=== PATIENT | female | born 1975 | race African-American/Black ===

== ENCOUNTER 2016-12-22 15:09 | Inpatient (IN) | payer MEDICARE, MEDICAID ==
[2016-12-22 15:51] LABS: #Lymphocytes 1.3 thou/uL (1.20-3.40); #Monocytes 1.1 thou/uL (0.11-0.59); #Neutrophils 15.1 thou/uL (1.40-6.50); %Eosinophils 0.1 % (0.0-10.0); %Lymphocytes 7.5 % (21.0-51.0); Hematocrit 27.4 % (36.0-47.0); Red Blood Cell (RBC) Count 2.89 mill/uL (4.20-5.40); White Blood Cell (WBC) Count 17.5 thou/uL (4.8-10.8)
--- NOTE | 2016-12-22 16:05 | RAD ---
LEFT FOOT 3 VIEWS: INDICATION: Sepsis. FINDINGS: No acute fracture or dislocation. There is vascular calcification. No radiopaque foreign bodies ar e seen. IMPRESSION: No acute osseous abnormality of the left foot. POS: [facility]
--- NOTE | 2016-12-22 16:07 | RAD ---
2 VIEWS OF CHEST: Date: 12/22/16 COMPARISON: 03/27/12. HISTORY: Sepsis, dialysis patient. FINDINGS: There is extensive vascular stent material in the left axillary and subclavian region. Midline dai otomy wires are present. There is no pneumothorax, pleural fluid, focal consolidation, or alveolar e lopez. There are upper abdominal postsurgical clips. IMPRESSION: Postoperative changes as detailed above. No focal consolidation or alveolar edema. POS: [facility]
[2016-12-22 16:11] LABS: ALT (SGPT) Less than 7 U/L (8-55); AST (SGOT) 6 U/L (5-34); Alkaline Phosphatase 122 U/L (40-150); Anion Gap 14 mmol/L (10-20); BUN (Urea Nitrogen) 29 mg/dL (7.0-18.7); Bilirubin, Total 0.6 mg/dL (0.2-1.2); Calc. Creatinine Clearance 0 mL/min (70-130); Calcium 9.2 mg/dL (7.8-10.44); Carbon Dioxide 23 mmol/L (22-29); Chloride 99 mmol/L (98-107); Estimated GFR-MDRD 7; Globulin 5.6 g/dL (2.4-3.5); Protein, Total 8.5 g/dL (6.0-8.3)
[2016-12-22 16:25] LABS: Troponin I 0.301 ng/mL (< 0.028)
[2016-12-22] MEDS ORDERED: Acetaminophen 500 MG TAB ONE (16:26)
[2016-12-22] MEDS ORDERED: Ondansetron HCl/PF 4 MG/2 ML Vial ONE (16:34)
--- OUTSIDE RECORDS SUMMARY | 2016-12-22 16:56 | XMS | Clinical Summary ---
:1975 Author Organization [facility] Address [address] [place] [address] Phone Care Team Providers Name Role Phone , Primary Care Provider Unavailable Allergies Active Allergy Reactions Severity Noted Date Comments Iodine And Iodide Containing Hives,Nausea And Vomiting 09/10/2016 Products Current Medications Prescription Sig. Disp. Refills Start Date End Date Status amLODIPine (NORVASC) Take 10 mg by mouth Active 10 MG tablet daily. calcium carbonate Take 1 tablet by mouth Active (TUMS) 500 mg daily. chewable tablet cholecalciferol, Take 5,000 Units by Active vitamin D3, 5,000 mouth daily. unit Tab sevelamer (RENVELA) Take 1,600 mg by mouth Active 800 mg tablet 3 (three) times daily with meals. aspirin 81 MG EC Take 81 mg by mouth Active tablet daily. pregabalin (LYRICA) Take 75 mg by mouth 2 Active 75 MG capsule (two) times daily. cinacalcet (SENSIPAR) Take 30 mg by mouth Active 30 MG tablet daily. carvedilol (COREG) Take 3.125 mg by mouth Active 3.125 MG tablet 2 (two) times daily with breakfast and dinner. lisinopril Take 2.5 mg by mouth Active (PRINIVIL,ZESTRIL) daily. 2.5 MG tablet insulin aspart Inject subcutaneously 2 Active protamine-insulin (two) times daily with aspart (NOVOLOG MIX breakfast and dinner 15 70/30) 100 unit/mL units in am and 10 in (70-30) injection evening . 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 with type 2 2016 diabetes mellitus, unspecified proliferative retinopathy type (HCC) Diabetic polyneuropathy associated with type 2 diabetes mellitus ([facility]) 2016 Pre-transplant evaluation for ESRD (end stage renal disease) 11/10/2014 ESRD (end stage renal disease) ([facility]) 11/10/2014 Type 2 diabetes mellitus with proliferative diabetic retinopathy without 11/10 macular edema Diabetic nephropathy associated with other specified diabetes mellitus 2014 (HCC) Coronary artery disease involving [place] coronary artery of [place] heart 11/10 without angina pectoris S/P CABG x 4 11/10/2014 Obesity (BMI 30-39.9) 11/10/2014 Thyrotoxicosis with diffuse goiter and without thyroid storm 11/10/2014 Family History Medical History Relation Name Comments Heart disease Father S/p CABG x3 Post-traumatic stress disorder Father Was a from [facility] Diabetes type II Mother from kidney failure Hypertension Mother Relation Name Status Comments Brother Alive Father Alive Mother (Age 42) Kidney failure from diabetes Sister Alive Social History Tobacco Use Types Packs/Day Years Used Date Never Smoker Alcohol Use Drinks/Week oz/Week Comments Yes rarely Sex Assigned at Date Recorded Not on file Last Filed Vital Signs Vital Sign Reading Time Taken Blood Pressure 102/68 09/10/2016 12:28 PM CDT Pulse 80 09/10/2016 12:28 PM CDT Temperature 36.8 C (98.3 F) 09/10/2016 12:28 PM CDT Respiratory Rate 18 09/10/2016 12:28 PM CDT Oxygen Saturation 100% 09/10/2016 12:28 PM CDT Inhaled Oxygen Concentration - - Weight 99.2 kg (218 lb 9.6 oz) 09/10/2016 12:28 PM CDT Height 170.2 cm (5' 7") 09/10/2016 12:28 PM CDT Body Mass Index 34.24 09/10/2016 12:28 PM CDT Plan of Treatment Health Maintenance Due Date Last Done Comments INFLUENZA VACCINE 11/09/2016 Results Not on filefrom Last 3 Months Advance Directives Patient has advance directives. For more information, please contact:[address] [phone]
[2016-12-22 21:18] LABS: Troponin I 0.022 ng/mL (< 0.028)
--- NOTE | 2016-12-22 21:57 | HP ---
DATE OF ADMISSION: 12/22/2016 CHIEF COMPLAINT: Sepsis. HISTORY OF PRESENT ILLNESS: Ms. Cabral is a 41-year-old female with history of diabetes an d hypertension and resultant end-stage renal disease who is on hemodialysis via a left upper extremi ty arteriovenous fistula on Thursday, Wednesdays and Fridays. She has had a history recently of a left great toe plantar ulceration and had seen a chimney construction supervisor. Th ey told her that she had a blister that had popped. It left a resultant eschar and ulcer. At that time, her x-rays were done that were unremarkable and she had no signs of infection. Fast forward to this week, she was at hemodialysis today and developed fever. She was able to judith ate about an hour's worth of dialysis, but was subsequently sent to the emergency department, did no t complete. On evaluation here, temperature was 103.1. She had a pulse of 103 with an elevated white blood cell count of 17.5 and a presumed bacterial infection with cellulitis of her left foot and met sepsis cr iteria. We were called for admission. Since being in the ER, she got vancomycin, gave 1 gram of Tylenol, she is feeling better and her fev ers are gone. She does admit to having chills and rigors. No cough or sputum production. No chest pain or shortness of breath, no nausea, vomiting or diarrhea. She had one episode of diarrhea when she first arrived, but has resolved. PAST MEDICAL HISTORY: 1. Hypertension, essential. 2. Diabetes mellitus type 2, insulin-dependent, with nephropathy. 3. Metabolic bone disease. 4. End-stage renal disease on hemodialysis. 5. Coronary artery disease. PAST SURGICAL HISTORY: Include, 1. Coronary artery bypass grafting x4 vessels in 2006. 2. Bilateral tubal ligation remotely. 3. Appendectomy remotely. 4. Left upper extremity fistula creation by Dr. Grigsby in 2014. 5. Laparoscopic cholecystectomy in 10/2016. HOME MEDICATIONS: 1. Amlodipine 5 mg p.o. daily. 2. Aspirin 81 mg daily. 3. Coreg 6.25 mg p.o. b.i.d. 4. Insulin 70/30 13 units subcu q.a.m. and 10 units subcu q.p.m. 5. Vitamin D3 of 5000 units daily. 6. Renvela 3 tablets p.o. b.i.d. with meals. ALLERGIES: NKDA. FAMILY HISTORY: Negative for clotting or bleeding disorder, no immune dysfunction. SOCIAL HISTORY: Negative for alcohol, tobacco, or drugs. She lives at home with family. REVIEW OF SYSTEMS: A 10-point review of systems was performed and negative for all other systems ex cept as stated as per HPI. PHYSICAL EXAMINATION: VITAL SIGNS: Temperature 103.1, pulse 103, blood pressure 158/82, respiratory 20, satting 96% on ro om air. On arrival, it is 10/10, it is currently down to about 3/10 into her foot. GENERAL: She is awake. She is alert. She is oriented x3, is a well-developed, well-nourished Afri can [place] female, appears to be in no acute distress. HEENT: Normocephalic, atraumatic. Pupils equal, reactive bilaterally, she has left lid ptosis that is chronic. Mucous membranes are moist. She has no visible lesions. No thrush. NECK: Supple, without lymphadenopathy, no JVD, no thyromegaly. She has normal carotid upstrokes bi laterally with no bruits. LUNGS: Clear to auscultation bilaterally without wheezes, rales or rhonchi. She has good air movem ent, symmetric chest excursion. There is no end expiratory wheezing or prolonged expiratory phase. CARDIOVASCULAR: She has normal S1 and S2. No S3 or S4. She has no audible murmurs to me. She has a regular rhythm and a normal rate. ABDOMEN: Soft, it is nontender and nondistended. She has no masses or organomegaly. She is slight ly obese. EXTREMITIES: No cyanosis, no clubbing. She has edema only to the left foot. Her left foot is eryt hematous from the ankle distally. She has a sausage digit to her great hallux. On the plantar aspe ct, she has a 2 x 2 cm eschar in the plantar aspect of her left hallux and desquamation over the neto face. She has no fluctuance, but her toe is tender. There is no exposed bone and no drainage. SKIN: Otherwise is warm and well perfused without any other rashes or lesions. MUSCULOSKELETAL: Otherwise negative to inspection. She has no inflamed or arthritic joints and no palpable joint effusions in all joints. NEUROLOGIC: Cranial nerves II-XII are grossly intact. She has no focal neurologic deficits. Lynn l speech pattern. She has 5/5 strength. LABORATORY DATA: Sodium 132, potassium 3.9, chloride 99, bicarbonate 23, BUN 29, creatinine 7.56, a nd glucose of 182. Calcium was normal. Liver functions are normal. A total protein of 8.5 and alb umin 2.9. CBC showed a white count of 17.5, hemoglobin of 8.6, hematocrit of 27.4, and platelet count of 273,0 00 with a normal differential. She has a left shift with a few bands. Sed rate was 80 and her C-reactive protein was 24.00. Lactic acid was normal at 1.0 and serum pregn michelle test was negative. CK-MB negative with 0.4. The troponin I is 0.301. RADIOGRAPHIC STUDIES: She had a chest x-ray that showed no acute changes. She does have some posto p sternotomy changes. There was no imaging of her foot. ASSESSMENT AND PLAN: 1. Cellulitis of the left foot and hallux. 2. Sepsis. 3. 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 4. Hypertension. 5. Diabetes mellitus type 2, insulin-dependent, with nephropathy and probable neuropathy. 6. End-stage renal disease, on hemodialysis Thursday, Thursday, and Thursday. 7. Metabolic bone disease. 8. Likely anemia of chronic disease. 9. The patient will be admitted to inpatient on the telemetry unit. We will consult Dr. Giordano, who is her compositor apprentice and we will start her on vancomycin plus cefepime. She got a dose of vancomycin in the ER. We will get an MRI of her foot. She has a high likelihood of having osteomyelitis give n her elevated C-reactive protein and sed rate. May need to consult Surgery if this is the case. O therwise, she will need long-term IV antibiotics. She does have evidence of bone infection and does not completely remove the focus. In the meantime, we will repeat morning labs, and we will reevalu ate her. 10. End-stage renal disease. Consult Dr. Giordano. 11. Hypertension. Continue home medications. 12. Diabetes mellitus type 2, patient is on 70/30 regimen. We will use sliding scale insulin for c orrection for now. With eating adequately, we should be able to get her started on a long-acting ba talon insulin. 13. History of coronary artery disease without evidence of angina.
[2016-12-22] MEDS ORDERED: HumaLOG 300 UNITS/3 ML VIAL SC PRN (22:19)
[2016-12-22] MEDS ORDERED: Acetaminophen 325 MG TAB PO PRN (22:19)
[2016-12-22] MEDS ORDERED: Dextrose 50% Abboject 50 ML SYRINGE SLOW IVP PRN (22:19)
[2016-12-22] MEDS ORDERED: HYDROcodone/Acetaminophen 5/325 mg Tablet PO PRN (22:19)
[2016-12-22] MEDS ORDERED: Dextrose 5% in Water 1,000 ML IV PRN (22:19)
[2016-12-22] MEDS ORDERED: Famotidine 20 MG TAB PO SCH (22:30)
[2016-12-22] MEDS: Carvedilol 3.125 MG TAB PO SCH (22:39)
[2016-12-22] MEDS: HYDROcodone/Acetaminophen 10/325 mg Tablet PO PRN (22:40)
[2016-12-22] MEDS: Ondansetron ODT 4 MG TAB PO PRN (22:42)
[2016-12-22 23:59] LABS: Troponin I 0.017 ng/mL (< 0.028)
[2016-12-23 06:14] LABS: Anion Gap 12 mmol/L (10-20); BUN (Urea Nitrogen) 33 mg/dL (7.0-18.7); BUN/Creatinine Ratio 4.11; Calc. Creatinine Clearance 13 mL/min (70-130); Calcium 8.9 mg/dL (7.8-10.44); Carbon Dioxide 24 mmol/L (22-29); Chloride 100 mmol/L (98-107); Estimated GFR-MDRD 7; Phosphorus 3.9 mg/dL (2.3-4.7); Vancomycin, Random 17.9 ug/mL (See Comment)
[2016-12-23 06:29] LABS: #Basophils 0.1 thou/uL (0.0-0.2); #Lymphocytes 2.2 thou/uL (1.20-3.40); #Monocytes 1.6 thou/uL (0.11-0.59); #Neutrophils 14.2 thou/uL (1.40-6.50); %Basophils 0.3 % (0.0-1.0); %Eosinophils 0.3 % (0.0-10.0); %Lymphocytes 12.3 % (21.0-51.0); %Monocytes 8.9 % (0.0-10.0); Anisocytosis SLIGHT = 6-15 cells (100X) (0-5/hpf); Hematocrit 25.8 % (36.0-47.0); Mean Platelet Volume 8.2 fL (7.4-10.4); Red Blood Cell (RBC) Count 2.69 mill/uL (4.20-5.40); White Blood Cell (WBC) Count 18.1 thou/uL (4.8-10.8)
[2016-12-23] MEDS: HYDROcodone/Acetaminophen 10/325 mg Tablet PO PRN ×2 (06:52→13:45)
[2016-12-23] MEDS: Carvedilol 3.125 MG TAB PO SCH ×2 (08:16→20:34)
[2016-12-23] MEDS: Amlodipine 5 MG TAB PO SCH (08:16)
[2016-12-23] MEDS: Sevelamer Carbonate 800 MG TAB PO SCH ×4 (08:16→20:34)
[2016-12-23] MEDS ORDERED: FLU VACC QS2017-18 36 mo. & older 0.5 ML SYRINGE IM ONE (09:00)
[2016-12-23] MEDS: Ondansetron ODT 4 MG TAB PO PRN ×2 (09:21→20:34)
--- NOTE | 2016-12-23 17:33 | PDOC.PN ---
- Subjective Encounter Start Date: 12/23/16 Encounter Start Time: 17:30 Subjective: f/u for sepsis secondary to cellulitis L great toe on Vancomycin and -: Cefepime. Some toe pain but no fever. No prior hx of toe ulcers. -: Tm = 103 - Objective Resuscitation Status: Resuscitation Status FULL:Full Resuscitation MAR Reviewed: Yes Vital Signs & Weight: Vital Signs (12 hours) Temp Pulse Resp BP BP Pulse Ox 12/23/16 12:23 99.4 F 86 17 147/72 H 96 12/23/16 08:16 89 122/74 12/23/16 08:10 99.7 F H 89 16 95 12/23/16 08:06 99.7 F H 89 16 122/74 95 Weight Admit Weight 199 lb Weight 199 lb I&O: 12/22/16 12/23/16 12/24/16 06:59 06:59 06:59 Intake Total 360 Output Total 150 250 Balance -150 110 Result Diagrams: 12/23/16 05:43 12/23/16 05:43 Additional Labs: Accuchecks 12/23/16 12/23/16 12/23/16 17:07 11:01 05:53 POC Glucose 186 H 155 H 148 H 12/22/16 20:43 POC Glucose 187 H Radiology Reviewed by me: Yes (MRI L foot - acute osteomyelitis great toe prox/ distal phalanx) EKG Reviewed by me: Yes (Tele - SR in 80's) Phys Exam - Physical Examination Constitutional: NAD HEENT: PERRLA, oral pharynx no lesions Neck: no JVD, supple Respiratory: no wheezing, clear to auscultation bilateral Cardiovascular: RRR Gastrointestinal: soft, non-tender, no distention, positive bowel sounds L great toe edema, ulceration on plantar aspect Musculoskeletal: pulses present Neurological: moves all 4 limbs Psychiatric: A&O x 3 Skin: normal turgor, cap refill <2 seconds Dx/Plan (1) Osteomyelitis of left foot Code(s): M86.9 - OSTEOMYELITIS, UNSPECIFIED Status: Acute Comment: L great toe involvement, consult Gen surg, continue Vancomycin and Cefepime, pain control, local wound care (2) Diabetic neuropathy Code(s): E11.40 - TYPE 2 DIABETES MELLITUS WITH DIABETIC NEUROPATHY, UNSP Status: Chronic Qualifiers: Diabetes mellitus type: type 2 Comment: ISS, accuchecks ac/hs, restart home DM regimen (3) ESRD (end stage renal disease) on dialysis Code(s): N18.6 - END STAGE RENAL DISEASE; Z99.2 - DEPENDENCE ON RENAL DIALYSIS Status: Chronic Comment: HD per Renal service (4) Diabetes mellitus Code(s): E11.9 - TYPE 2 DIABETES MELLITUS WITHOUT COMPLICATIONS Status: Chronic Comment: Confirm home DM regimen (5) HTN (hypertension) Code(s): I10 - ESSENTIAL (PRIMARY) HYPERTENSION Status: Chronic Comment: Continue Amlodipine and Carvedilol, serial monitoring (6) Anemia in chronic kidney disease (CKD) Code(s): N18.9 - CHRONIC KIDNEY DISEASE, UNSPECIFIED; D63.1 - ANEMIA IN CHRONIC KIDNEY DISEASE Status: Chronic Comment: Stable, continue to monitor H/H trend - Plan continue antibiotics, PT/OT, clinical social worker, DVT proph w/SCDs Stable currently -: Consult Gen Surgery for evaluation -: Pain control -: Continue Vancomycin and Cefepime -: AM lab: BMP, CBC * .
--- NOTE | 2016-12-23 17:37 | MRI ---
MRI OF THE LEFT FOREFOOT WITHOUT CONTRAST 12/23/16 HISTORY: Left hallux cellulitis. Evaluate for osteomyelitis. FINDINGS: There is loss of normal T1 signal of the great toe distal phalanx with erosions of the cortex. There is also abnormal T1 signal within the head of the proximal phalanx of the great toe. Abnormal joint effusion of the phalangeal joints present. There is also an effusion of the metatarsophalangeal dyan nt. There is mild edema around the flexor hallucis longus tendon most likely some infected tenosynovial fluid extending to the hindfoot. No evidence for drainable fluid collection, although limited withou t intravenous contrast. IMPRESSION: 1. Osteomyelitis great toe distal phalanx as well as the proximal phalanx head and neck with se ptic arthritis of the interphalangeal joint. 2. Extensive surrounding cellulitis of the great toe and within the webbing of the first and se cond interphalangeal webbing. 3. Infected tenosynovitis of the flexor hallucis longus tendon extending to the midfoot. POS: [facility]
[2016-12-23] MEDS ORDERED: traMADol HCl 50 MG TAB PO PRN ×2 (20:33)
[2016-12-23] MEDS ORDERED: Acetaminophen 500 MG TAB PO PRN (20:33)
[2016-12-23] MEDS: Famotidine 20 MG TAB PO SCH (20:34)
[2016-12-24 05:23] LABS: Anion Gap 14 mmol/L (10-20); BUN (Urea Nitrogen) 42 mg/dL (7.0-18.7); Calc. Creatinine Clearance 11 mL/min (70-130); Calcium 8.9 mg/dL (7.8-10.44); Carbon Dioxide 22 mmol/L (22-29); Chloride 98 mmol/L (98-107); Estimated GFR-MDRD 6
[2016-12-24 05:24] LABS: Band 3 % (5-11); Hematocrit 26.2 % (36.0-47.0); Hypochromia SLIGHT = 6-15 cells (100X) (0-5/hpf); Mean Platelet Volume 8.3 fL (7.4-10.4); Neutrophil 80 % (42-75); Red Blood Cell (RBC) Count 2.72 mill/uL (4.20-5.40); White Blood Cell (WBC) Count 15.5 thou/uL (4.8-10.8)
--- NOTE | 2016-12-24 05:57 | CON ---
DATE OF CONSULTATION: 12/23/2016 CONSULTING PHYSICIAN: Dr. Cruz. REASON FOR CONSULTATION: End-stage renal disease evaluation and care. REASON FOR ADMISSION: Sepsis. HISTORY OF PRESENT ILLNESS: A 41-year-old female with history of type 2 diabetes, hypertension, and end-stage renal disease who came to the hospital with not feeling well and weakness and was found t o have sepsis and being evaluated by [facility]. The patient gets dialysis Thursday, Thursday, and Thursday, had a few hours of dialysis yesterday. The patient was seen this morning, she denies a ny chest pain, shortness of breath, no fever or chills, no nausea, vomiting, diarrhea. She is feeli ng little bit better reportedly. PAST MEDICAL HISTORY: Positive for hypertension, type 2 diabetes, end-stage renal disease, coronary artery disease. PAST SURGICAL HISTORY: CABG, tubal ligation, appendectomy, fistula placement, cholecystectomy. HOME MEDICATIONS: Amlodipine, aspirin, Coreg, insulin 70/30, vitamin D3, Renvela. ALLERGIES: No known drug allergies. SOCIAL HISTORY: No alcohol or illicit drug abuse reported. No tobacco use. FAMILY HISTORY: No history of any kidney disease. REVIEW OF SYSTEMS: The following complete review of systems was negative, unless otherwise mentione d in the HPI or below: Constitutional: Weight loss or gain, ability to conduct usual activities. Skin: Rash, itching. Eyes: Double vision, pain. ENT/Mouth: Nose bleeding, neck stiffness, pain, tenderness. Cardiovascular: Palpitations, dyspnea on exertion, orthopnea. Respiratory: Shortness of breath, wheezing, cough, hemoptysis, fever or night sweats. Gastrointestinal: Poor appetite, abdominal pain, heartburn, nausea, vomiting, constipation, or diar lizz. Genitourinary: Urgency, frequency, dysuria, nocturia. Musculoskeletal: Pain, swelling. Neurologic/Psychiatric: Anxiety, depression. Allergy/Immunologic: Skin rash, bleeding tendency. PHYSICAL EXAMINATION: GENERAL: This is a well-built female in no apparent distress. VITAL SIGNS: Temperature 99.5, pulse 88, respiratory rate 18, blood pressure 127/64. HEENT: Atraumatic, normocephalic. Oral mucosa is moist. NECK: Supple, no masses. CARDIOVASCULAR: S1, S2 heard. Rate and rhythm regular. RESPIRATORY: Clear. GASTROINTESTINAL: Abdomen is soft. MUSCULOSKELETAL: No tenderness. No edema. DERMATOLOGIC: No skin rash. NEUROLOGIC: Alert, awake. PSYCHIATRIC: Mood and affect normal. LABORATORY DATA: Hemoglobin is 7.7, potassium 4.4, BUN 33, creatinine 8.02. ASSESSMENT AND PLAN: 1. End-stage renal disease on hemodialysis. No acute indication for dialysis. We will continue on dialysis per her schedule of Thursday, Thursday and Thursday. 2. Hypertension, stable. 3. Anemia. Continue Epogen with dialysis. 4. Sepsis per primary team. 5. Edema, controlled. Plan is to continue on dialysis Thursday, Thursday, and Thursday as tolerated. Thank you for the consultation.
--- NOTE | 2016-12-24 06:01 | CON ---
DATE OF CONSULTATION: 12/23/2016 HISTORY OF PRESENT ILLNESS: Emelina Cabral was admitted 2 days ago from the emergency room with a left great toe infection. Plain x-rays are . MRI demonstrates osteomyelitis with a deep infec tion. She has blistering of the skin. She has been feeling poorly. She is diabetic. She has end- stage renal disease on dialysis using a left upper extremity fistula that was placed 03/2014. The p atient has palpable pedal pulses. She is a nonsmoker. She is an insulin-dependent diabetic. She l oanh with her family in [place]. ALLERGIES: None. TOBACCO: None. ALCOHOL: None. MEDICATIONS AT HOME: Renvela, Coreg, aspirin, amlodipine. In the hospital, she is on vancomycin an d Zosyn. PAST SURGICAL HISTORY: Left arm primary fistula placed in 2014, hemodialysis catheters placed and r emoved, coronary artery bypass grafting 4 vessels 2006, bilateral tubal ligation, appendectomy, lapa roscopic cholecystectomy in 2016. PAST MEDICAL HISTORY: Hypertension; diabetes mellitus type 2, insulin-dependent; end-stage renal di sease, on hemodialysis; coronary artery disease, status post bypass grafting. PHYSICAL EXAMINATION: VITAL SIGNS: Height 5 feet 9 inches, weight 199 pounds; 31 BMI; temperature 99.5 degrees, 100.2 deg fabby earlier; heart rate 80; blood pressure 127/64. LUNGS: Clear to auscultation. CARDIAC: Regular rate and rhythm without murmur or gallop. ABDOMEN: Soft, nontender. EXTREMITIES: Palpable femoral, popliteal, pedal pulses. Left great toe plantar large eschar. Slum ping skin, blistering skin about the great toe and forefoot. White count 17 on admission, 18,000 to day; hemoglobin 7.7. Basic metabolic profile unremarkable except for changes related to end-stage r enal disease on dialysis. ASSESSMENT AND PLAN: 1. The patient lives in [place] and dialyses using left upper arm fistula, has left great toe plant ar eschar, deep infection with osteomyelitis. Would recommend amputation of left great toe with jessica lloyd by secondary intention. She can be discharged home on oral antibiotics at the end of the week or weekend with home health. Wound care arranged for wound VAC changes 2 to 3 times a week. She sh ould follow up in my office in 2 to 3 weeks. 2. End-stage renal disease, should avoid IVs above her wrist. Even though, she has a functioning l eft arm fistula at her young age of 41. She might need her right arm for access in the future, woul d remove the antecubital IV as antecubital IV should not be placed in end stage renal disease or chr onic kidney disease patients. 3. Coronary artery disease. 4. Hypertension. 5. Insulin-dependent diabetic.
[2016-12-24] MEDS: Sevelamer Carbonate 800 MG TAB PO SCH ×5 (08:00→21:29)
[2016-12-24] MEDS: Polyethylene Glycol 3350 17 GM Packet PO SCH (09:00)
[2016-12-24] MEDS ORDERED: Fentanyl 100 MCG/2 ML VIAL ONE ×2 (11:40→13:21)
[2016-12-24] MEDS ORDERED: Lidocaine 2% PF 10 ML AMP (For Epidural Use) ONE (11:58)
[2016-12-24] MEDS ORDERED: Propofol 200 MG/20 ML VIAL ONE (11:58)
--- NOTE | 2016-12-24 12:50 | OP ---
DATE OF PROCEDURE: 12/24/2016 PREOPERATIVE DIAGNOSIS: Left great toe and metatarsal severe diabetic infection with osteomyelitis. Erythema to the plantar arch. PROCEDURE: Amputation of left great toe and metatarsal, wound healing by secondary intention. Wound left open, wound VAC applied by Wound Care team. SURGEON: Dr. Niles Grigsby ANESTHESIA: General LMA. PROCEDURE IN DETAIL: The patient was taken to the operating room where under general LMA anesthesia, left lower extremity was prepared with ChloraPrep, draped in routine fashion. Amputation of the lef t great toe through the proximal phalanx was undertaken, but there is purulent discharge up to the pr oximal phalangeal joint. The incision extended for amputation of left great toe and metatarsal, gan ied down through the skin and subcutaneous tissue and metatarsal, transected with a bone cutter, rese cted proximally with a rongeur. Connective tissue debrided sharply. Cultures submitted. Wound irri gated. Good hemostasis noted. Wound Care team arrived and placed a wound VAC.
--- NOTE | 2016-12-24 15:43 | PDOC.PN ---
- Subjective Encounter Start Date: 12/24/16 Encounter Start Time: 14:30 Subjective: f/u for L great toe osteomyelitis. s/p amputation of L great toe and distal -: metatarsal with wound vac application. - Objective Resuscitation Status: Resuscitation Status FULL:Full Resuscitation Vital Signs & Weight: Vital Signs (12 hours) Temp Pulse Resp BP Pulse Ox 12/24/16 04:00 100.5 F H 83 18 132/61 91 L Weight Admit Weight 199 lb Weight 199 lb 1.6 oz I&O: 12/23/16 12/24/16 12/25/16 06:59 06:59 06:59 Intake Total 600 Output Total 150 350 Balance -150 250 Result Diagrams: 12/24/16 04:47 12/24/16 04:47 Additional Labs: Accuchecks 12/24/16 12/23/16 12/23/16 06:08 20:30 17:07 POC Glucose 111 H 166 H 186 H Microbiology 12/22/16 19:25 Nasal swab Influenza Types A,B Direct EIA - Final 12/22/16 22:15 Foot Bacterial Culture - Preliminary Methicillin resistant S.aureus 12/22/16 15:42 Venous blood - Right Hand Blood Culture - Preliminary NO GROWTH AT 48 HOURS 12/22/16 15:35 Venous blood - Right Arm Blood Culture - Preliminary NO GROWTH AT 48 HOURS Microbiology 12/22/16 19:25 Nasal swab Influenza Types A,B Direct EIA - Final 12/22/16 22:15 Foot Bacterial Culture - Preliminary Methicillin resistant S.aureus 12/22/16 15:42 Venous blood - Right Hand Blood Culture - Preliminary NO GROWTH AT 48 HOURS 12/22/16 15:35 Venous blood - Right Arm Blood Culture - Preliminary NO GROWTH AT 48 HOURS Laboratory Tests 12/22/16 12/23/16 12/23/16 15:35 05:43 05:43 WBC Sodium 132 L 132 L Creatinine 7.56 H 8.02 H Random Vancomycin 17.9 Hep Bs Antigen 12/23/16 12/23/16 05:43 09:44 WBC 18.1 H Sodium Creatinine Random Vancomycin Hep Bs Antigen Non-Reactive EKG Reviewed by me: Yes (Tele - SR) Phys Exam - Physical Examination Constitutional: NAD HEENT: PERRLA, oral pharynx no lesions Neck: no JVD, supple Respiratory: no wheezing, clear to auscultation bilateral Cardiovascular: RRR Gastrointestinal: soft, non-tender, no distention, positive bowel sounds L foot with surgical dressing and wound vac in place Musculoskeletal: pulses present Neurological: normal sensation, moves all 4 limbs Psychiatric: A&O x 3 Skin: normal turgor, cap refill <2 seconds Dx/Plan (1) Osteomyelitis of left foot Code(s): M86.9 - OSTEOMYELITIS, UNSPECIFIED Status: Acute Comment: s/p amputation of L great toe and distal metatarsal, wound vac application, pain control, MRSA isolated on wound cx (2) Diabetic neuropathy Code(s): E11.40 - TYPE 2 DIABETES MELLITUS WITH DIABETIC NEUROPATHY, UNSP Status: Chronic Qualifiers: Diabetes mellitus type: type 2 Comment: ISS, accuchecks ac/hs, restart home DM regimen (3) ESRD (end stage renal disease) on dialysis Code(s): N18.6 - END STAGE RENAL DISEASE; Z99.2 - DEPENDENCE ON RENAL DIALYSIS Status: Chronic Comment: HD per Renal service (4) Diabetes mellitus Code(s): E11.9 - TYPE 2 DIABETES MELLITUS WITHOUT COMPLICATIONS Status: Chronic Comment: Confirm home DM regimen (5) HTN (hypertension) Code(s): I10 - ESSENTIAL (PRIMARY) HYPERTENSION Status: Chronic Comment: Continue Amlodipine and Carvedilol, serial monitoring (6) Anemia in chronic kidney disease (CKD) Code(s): N18.9 - CHRONIC KIDNEY DISEASE, UNSPECIFIED; D63.1 - ANEMIA IN CHRONIC KIDNEY DISEASE Status: Chronic Comment: Stable, continue to monitor H/H trend - Plan plan discussed w/ family, PT/OT, neonatal social worker, out of bed/ambulate Stable overall -: Local WCT with wound vac -: Pain control as indicated -: Continue ASA, Coreg and Amlodipine -: HD per Renal service * AM lab: BMP, CBC
[2016-12-24] MEDS: Amlodipine 5 MG TAB PO SCH (16:03)
[2016-12-24] MEDS: Carvedilol 3.125 MG TAB PO SCH ×2 (16:04→21:30)
[2016-12-24] MEDS ORDERED: HYDROcodone/Acetaminophen 5/325 mg Tablet PO PRN (18:11)
[2016-12-24] MEDS: HYDROcodone/Acetaminophen 5/325 mg Tablet PO PRN (18:34)
[2016-12-24] MEDS: Famotidine 20 MG TAB PO SCH (21:30)
--- NOTE | 2016-12-24 22:21 | PRG ---
DATE OF SERVICE: 12/24/2016 SUBJECTIVE: Patient was seen and examined at bedside and overnight events noted. Patient denies any shortness of breath or chest pain or palpitation. No history of nausea or vomiting or diarrhea or f ever or chills or cramps. OBJECTIVE: GENERAL: This is a well-built female in no apparent distress. VITAL SIGNS: Temperature 99.4, pulse 74, respiratory rate 18, blood pressure 123/56. HEENT: Atraumatic, normocephalic, oral mucosa is moist. NECK: Supple. CARDIOVASCULAR: S1, S2 heard, rate and rhythm regular. RESPIRATORY: Clear to auscultation. GASTROINTESTINAL: Abdomen is soft. MUSCULOSKELETAL: No tenderness, no edema. DERMATOLOGIC: No skin rash. NEUROLOGIC: Alert and awake and oriented x3, no focal neurologic deficits. Moving all the extremiti es. PSYCHIATRIC: Mood and affect normal. LABORATORY DATA: Potassium is 4.5, BUN is 42, creatinine 9.2. ASSESSMENT AND PLAN: 1. End-stage renal disease, continue on hemodialysis Thursday, Thursday, Thursday. 2. Hypertension. 3. Anemia. 4. Sepsis. 5. . Plan is to continue on dialysis as tolerated. We will follow.
[2016-12-25] MEDS: HYDROcodone/Acetaminophen 5/325 mg Tablet PO PRN ×3 (04:13→18:13)
[2016-12-25 05:48] LABS: Band 1 % (5-11); Hematocrit 25.9 % (36.0-47.0); Hypochromia SLIGHT = 6-15 cells (100X) (0-5/hpf); Mean Platelet Volume 9.3 fL (7.4-10.4); Neutrophil 74 % (42-75); Red Blood Cell (RBC) Count 2.75 mill/uL (4.20-5.40); Target Cells SLIGHT = 2-5 cells (100X) (0-1/hpf); White Blood Cell (WBC) Count 13.4 thou/uL (4.8-10.8)
[2016-12-25 05:57] LABS: Anion Gap 16 mmol/L (10-20); BUN (Urea Nitrogen) 29 mg/dL (7.0-18.7); Calc. Creatinine Clearance 15 mL/min (70-130); Calcium 8.6 mg/dL (7.8-10.44); Carbon Dioxide 22 mmol/L (22-29); Chloride 101 mmol/L (98-107); Estimated GFR-MDRD 8
[2016-12-25] MEDS: Sevelamer Carbonate 800 MG TAB PO SCH ×5 (08:00→20:46)
--- NOTE | 2016-12-25 09:44 | PQF ---
CLINICAL DOCUMENTATION IMPROVEMENT CLARIFICATION FORM: ICD-10 Updated PLEASE DO AN ADDENDUM TO THE PROGRESS NOTE WITH ANY DOCUMENTATION UPDATES OR ADDITIONS AND CARRY THROUGH TO DC SUMMARY. THANK YOU. DATE: 12/25/16 ATTN: Dr. Vasquez / DR. BENJAMIN Please exercise your independent, professional judgment in responding to the clarification form. Clinical indicators are provided on the bottom of this form for your review Please check appropriate box(s) to clarify if the following diagnosis has been ruled in our ruled out: SEPSIS . [ x ] Ruled in diagnosis [ x ] Continue to treat [ ] Resolved [ ] Ruled out diagnosis [ ] Cannot rule out diagnosis [ ] Other diagnosis [ ] Unable to determine For continuity of documentation, please document condition throughout progress notes and discharge summary. Thank You. CLINICAL INDICATORS - SIGNS / SYMPTOMS / LABS H&P: TEMP WAS 103.1, WBC 17.5 C-REACTIVE PROTEIN WAS 24.0 SEPSIS PN 12/23: F/U FOR SEPSIS 2/2 TO CELLULITIS L GREAT TOE ON VANCOMYCIN & CEFEPIME OSTEOMYELITIS L FOOT PN 12/24: OSTEOMYELITIS OF LEFT FOOT. RISKS: H&P: HX OF DM 2 WITH NEPHROPATHY. HTN & ESRD. CELLULITIS OF L FOOT & HALLUX. TREATMENT: OP REPORT: 12/24 AMPUTATION OF L GREAT TOE & METATARSAL, WOUND HEALING BY SECONDARY INTENTION. WOUND VAC APPLIED BY WOUND CARE TEAM Thank you, Emily (This form is maintained as a part of the permanent medical record) 2014 [employer]. All Rights Reserved Emily Eli RN, BSN [email or web address] Office: [phone] [facility]
[2016-12-25] MEDS: Ondansetron ODT 4 MG TAB PO PRN ×2 (11:01→20:45)
[2016-12-25] MEDS: Carvedilol 3.125 MG TAB PO SCH ×2 (11:03→21:30)
[2016-12-25] MEDS: Amlodipine 5 MG TAB PO SCH (11:04)
[2016-12-25] MEDS: Polyethylene Glycol 3350 17 GM Packet PO SCH (11:07)
--- NOTE | 2016-12-25 12:26 | PDOC.PN ---
- Subjective Encounter Start Date: 12/25/16 Encounter Start Time: 12:00 Subjective: f/u for amputation of L great toe due to osteomyelitis with polymicrobial -: sample including strep, MRSA and staph spp. Wound vac in place and -: pain manageable. Cefepime and Vancomycin for IV coverage. - Objective Resuscitation Status: Resuscitation Status FULL:Full Resuscitation MAR Reviewed: Yes Vital Signs & Weight: Vital Signs (12 hours) Temp Pulse Resp BP BP Pulse Ox 12/25/16 11:04 87 114/60 12/25/16 04:00 97.9 F 82 18 111/55 L 91 L Weight Admit Weight 199 lb Weight 205 lb 14.4 oz Tmax 100.5 I&O: 12/24/16 12/25/16 12/26/16 06:59 06:59 06:59 Intake Total 600 1620 Output Total 350 Balance 250 1620 Result Diagrams: 12/25/16 05:34 12/25/16 05:33 Additional Labs: Accuchecks 12/25/16 12/25/16 12/24/16 11:24 05:41 20:34 POC Glucose 161 H 158 H 165 H 12/24/16 16:52 POC Glucose 95 Microbiology 12/22/16 19:25 Nasal swab Influenza Types A,B Direct EIA - Final 12/24/16 12:37 Toe - Left Bacterial Culture - Preliminary 12/24/16 12:37 Toe - Left Staphylococcus aureus 12/22/16 22:15 Foot Bacterial Culture - Preliminary Methicillin resistant S.aureus Streptococcus pyogenes 12/22/16 22:15 Foot Bacterial Culture - Preliminary Methicillin resistant S.aureus 12/22/16 15:42 Venous blood - Right Hand Blood Culture - Preliminary NO GROWTH AT 48 HOURS 12/22/16 15:35 Venous blood - Right Arm Blood Culture - Preliminary NO GROWTH AT 48 HOURS Laboratory Tests 12/22/16 12/23/16 12/23/16 15:35 05:43 05:43 WBC Hgb Sodium 132 L 132 L Potassium Creatinine 7.56 H 8.02 H Random Vancomycin 17.9 Hep Bs Antigen 12/23/16 12/23/16 12/24/16 05:43 09:44 04:47 WBC 18.1 H Hgb 7.7 L Sodium Potassium 4.5 Creatinine Random Vancomycin Hep Bs Antigen Non-Reactive 12/24/16 04:47 WBC 15.5 H Hgb 7.9 L Sodium Potassium Creatinine Random Vancomycin Hep Bs Antigen EKG Reviewed by me: Yes (Tele - SR in 70's) Phys Exam - Physical Examination Constitutional: NAD HEENT: PERRLA, oral pharynx no lesions Neck: no JVD, supple Respiratory: no wheezing Cardiovascular: RRR Gastrointestinal: soft, non-tender, no distention, positive bowel sounds L foot with surgical dressing in place with wound vac Musculoskeletal: pulses present, edema present Neurological: moves all 4 limbs Psychiatric: A&O x 3 Skin: normal turgor, cap refill <2 seconds Dx/Plan (1) Osteomyelitis of left foot Code(s): M86.9 - OSTEOMYELITIS, UNSPECIFIED Status: Acute Comment: s/p amputation of L great toe and distal metatarsal, wound vac application, pain control, MRSA isolated on wound cx, POD #1, continue Cefepime and Vancomycin (2) Diabetic neuropathy Code(s): E11.40 - TYPE 2 DIABETES MELLITUS WITH DIABETIC NEUROPATHY, UNSP Status: Chronic Qualifiers: Diabetes mellitus type: type 2 Comment: ISS, accuchecks ac/hs, restart home DM regimen (3) ESRD (end stage renal disease) on dialysis Code(s): N18.6 - END STAGE RENAL DISEASE; Z99.2 - DEPENDENCE ON RENAL DIALYSIS Status: Chronic Comment: HD per Renal service (4) Diabetes mellitus Code(s): E11.9 - TYPE 2 DIABETES MELLITUS WITHOUT COMPLICATIONS Status: Chronic Comment: Confirm home DM regimen (5) HTN (hypertension) Code(s): I10 - ESSENTIAL (PRIMARY) HYPERTENSION Status: Chronic Comment: Continue Amlodipine and Carvedilol, serial monitoring (6) Anemia in chronic kidney disease (CKD) Code(s): N18.9 - CHRONIC KIDNEY DISEASE, UNSPECIFIED; D63.1 - ANEMIA IN CHRONIC KIDNEY DISEASE Status: Chronic Comment: Stable, continue to monitor H/H trend - Plan plan discussed w/ family, continue antibiotics, PT/OT, social media marketing analyst Continue Cefepime and Vancomycin -: Wound vac with local care -: Pain control as clinically tolerated -: HD per Renal service -: AM lab: BMP, CBC * .
[2016-12-25] MEDS ORDERED: Vancomycin HCl 1 GM in Premix Bag 1 BAG IVPB SCH ×3 (13:00→18:00)
[2016-12-25] MEDS ORDERED: Cefepime 1 GM, Admixture Fee 1 EACH in Sterile Water 10 ML SLOW IVP SCH (13:00)
[2016-12-25] MEDS ORDERED: Cefepime 1 GM in Sodium Chloride 0.9% 100 ML IVPB SCH (13:00)
[2016-12-25] MEDS: Cefepime 1 GM, Admixture Fee 1 EACH in Sterile Water 10 ML SLOW IVP SCH (18:56)
[2016-12-25] MEDS: Famotidine 20 MG TAB PO SCH (20:45)
[2016-12-26] MEDS: HYDROcodone/Acetaminophen 5/325 mg Tablet PO PRN ×3 (05:43→17:50)
[2016-12-26 05:49] LABS: Anion Gap 11 mmol/L (10-20); BUN (Urea Nitrogen) 20 mg/dL (7.0-18.7); Calc. Creatinine Clearance 19 mL/min (70-130); Calcium 8.8 mg/dL (7.8-10.44); Carbon Dioxide 30 mmol/L (22-29); Chloride 96 mmol/L (98-107); Estimated GFR-MDRD 10
[2016-12-26] MEDS: Cefepime 1 GM, Admixture Fee 1 EACH in Sterile Water 10 ML SLOW IVP SCH ×2 (05:55→17:51)
--- NOTE | 2016-12-26 06:15 | PRG ---
DATE OF SERVICE: 12/25/2016 SUBJECTIVE: Patient was seen and examined at bedside and overnight events noted. Patient denies any shortness of breath or chest pain or palpitation. No history of nausea or vomiting or diarrhea or f ever or chills or cramps. OBJECTIVE: GENERAL: This is a well-built female in no apparent distress. VITAL SIGNS: Temperature 98.8, pulse 74, respiratory rate 18, blood pressure 110/54. HEENT: Atraumatic, normocephalic. Oral mucosa is moist. NECK: Supple. CARDIOVASCULAR: S1, S2 heard. Rate and rhythm regular. RESPIRATORY: Clear to auscultation. GASTROINTESTINAL: Abdomen is soft. MUSCULOSKELETAL: No tenderness. No edema. DERMATOLOGIC: No skin rash. NEUROLOGIC: Alert and awake and oriented x3. No focal neurologic deficits. Moving all the extremit ies. PSYCHIATRIC: Mood and affect normal. LABORATORY DATA: Potassium is 5.8, BUN is 29, creatinine is 6.9. ASSESSMENT AND PLAN: 1. End-stage renal disease, currently on hemodialysis. 2. Hyperkalemia. We will have dialysis today. Patient did not have full session of dialysis hypertension. 3. Anemia. Monitor. 4. Limit potassium in the diet, will have dialysis today as tolerated.
[2016-12-26 06:54] LABS: Red Blood Cell (RBC) Count 2.73 mill/uL (4.20-5.40); White Blood Cell (WBC) Count 9.7 thou/uL (4.8-10.8)
[2016-12-26 07:29] LABS: Neutrophil 81 % (42-75); Reactive Lymphocytes 1 % (0-10)
[2016-12-26] MEDS: Ondansetron ODT 4 MG TAB PO PRN ×3 (07:50→20:54)
--- NOTE | 2016-12-26 09:57 | PRG ---
DATE OF SERVICE: 12/26/2016 SUBJECTIVE: Patient was seen and examined at bedside and overnight events noted. Patient denies any shortness of breath or chest pain or palpitation. No history of nausea or vomiting or diarrhea or f ever or chills or cramps. OBJECTIVE: GENERAL: This is a well-built female in no apparent distress. VITAL SIGNS: Temperature 98.3, pulse 76, respiratory rate 16, blood pressure 130/62. HEENT: Atraumatic, normocephalic. Oral mucosa is moist. NECK: Supple. CARDIOVASCULAR: S1, S2 heard. Rate and rhythm regular. RESPIRATORY: Clear to auscultation. GASTROINTESTINAL: Abdomen is soft. MUSCULOSKELETAL: No tenderness, no edema. DERMATOLOGIC: No skin rash. NEUROLOGIC: Alert and awake and oriented x3. No focal neurologic deficits. Moving all the extremit ies. PSYCHIATRIC: Mood and affect normal LABORATORY DATA: Potassium is 3.7, BUN is 20, and creatinine is 5.6. ASSESSMENT AND PLAN: 1. End-stage renal disease. Continue on dialysis, Thursday, Thursday, and Thursday. 2. Hyperkalemia, better. Limit potassium intake. 3. Hypertension. 4. Anemia. 5. Overall, tolerating dialysis. We will continue on dialysis as tolerated.
[2016-12-26] MEDS: Sevelamer Carbonate 800 MG TAB PO SCH ×5 (10:39→20:49)
[2016-12-26 12:22] VITALS: BMI 32.2
--- NOTE | 2016-12-26 12:34 | PDOC.PN ---
- Subjective Encounter Start Date: 12/26/16 Encounter Start Time: 11:10 -: old records requested/rev pt seen and examined while in HD. I admitted this patient, but Havent sen her in 3 days. Chart reviewed in its entirety. PT is S/P abnormal MRI, then consult by Dr Grigsby, followed by OR visit with hallux amputation. Wound open, anticipating wound VAC placement today. Pt has pain at operative site, but otherwise feels okay. No fevers, +sweats, no N/V/d/C, no CP, no SOB. plan is home with [facility] on discharge with VAC changes and assistance. 10 point HOS performed and neg for all systems except as per HPI - Objective Resuscitation Status: Resuscitation Status FULL:Full Resuscitation MAR Reviewed: Yes Vital Signs & Weight: Vital Signs (12 hours) Temp Pulse Resp BP Pulse Ox 12/26/16 07:47 98.3 F 76 16 130/62 92 L 12/26/16 04:00 98.6 F 74 16 108/54 L 95 Weight Admit Weight 199 lb Weight 205 lb 14.4 oz I&O: 12/25/16 12/26/16 12/27/16 06:59 06:59 06:59 Intake Total 1620 1080 Output Total 1500 Balance 1620 -420 Result Diagrams: 12/26/16 05:18 12/26/16 05:18 Additional Labs: Accuchecks 12/26/16 12/25/16 12/25/16 06:21 23:38 19:39 POC Glucose 123 H 193 H 204 H 12/25/16 17:46 POC Glucose 133 H Radiology Reviewed by me: Yes EKG Reviewed by me: Yes Phys Exam - Physical Examination Constitutional: NAD HEENT: PERRLA, moist MMs, sclera anicteric, oral pharynx no lesions Neck: no nodes, no JVD, supple, full ROM Respiratory: no wheezing, no rales, no rhonchi, clear to auscultation bilateral Cardiovascular: RRR, no significant murmur, no rub Gastrointestinal: soft, non-tender, no distention, positive bowel sounds Musculoskeletal: pulses present, edema present left hallux site in gauze wrap with this bloody strikethrough Neurological: non-focal, normal sensation, moves all 4 limbs Lymphatic: no nodes Psychiatric: normal affect, A&O x 3 Skin: no rash, normal turgor, cap refill <2 seconds Dx/Plan (1) MRSA (methicillin resistant Staphylococcus aureus) septicemia Code(s): A41.02 - SEPSIS DUE TO METHICILLIN RESISTANT STAPHYLOCOCCUS AUREUS Status: Acute (2) Osteomyelitis of left foot Code(s): M86.9 - OSTEOMYELITIS, UNSPECIFIED Status: Acute Comment: s/p amputation of L great toe and distal metatarsal, wound vac application, pain control, MRSA isolated on wound cx, POD #1, continue Cefepime and Vancomycin (3) Anemia in chronic kidney disease (CKD) Code(s): N18.9 - CHRONIC KIDNEY DISEASE, UNSPECIFIED; D63.1 - ANEMIA IN CHRONIC KIDNEY DISEASE Status: Chronic Comment: Stable, continue to monitor H/H trend (4) Diabetic neuropathy Code(s): E11.40 - TYPE 2 DIABETES MELLITUS WITH DIABETIC NEUROPATHY, UNSP Status: Chronic Qualifiers: Diabetes mellitus type: type 2 Comment: ISS, accuchecks ac/hs, restart home DM regimen (5) ESRD (end stage renal disease) on dialysis Code(s): N18.6 - END STAGE RENAL DISEASE; Z99.2 - DEPENDENCE ON RENAL DIALYSIS Status: Chronic Comment: HD per Renal service (6) Hyperthyroidism Code(s): E05.90 - THYROTOXICOSIS, UNSP WITHOUT THYROTOXIC CRISIS OR STORM Status: Acute (7) Diabetes mellitus Code(s): E11.9 - TYPE 2 DIABETES MELLITUS WITHOUT COMPLICATIONS Status: Chronic Comment: Confirm home DM regimen (8) HTN (hypertension) Code(s): I10 - ESSENTIAL (PRIMARY) HYPERTENSION Status: Chronic Comment: Continue Amlodipine and Carvedilol, serial monitoring - Plan * . continue Vancomycin. Home when VAc arranged and cleared by renal and surgery. MAy transfer to medical bed later. Pain control. Can streamline to vanc alone. Plan is to Rx for 3-4 post op if bone infection completely removed
[2016-12-26] MEDS: Carvedilol 3.125 MG TAB PO SCH ×2 (13:55→20:50)
[2016-12-26] MEDS: Polyethylene Glycol 3350 17 GM Packet PO SCH (13:55)
[2016-12-26] MEDS: Amlodipine 5 MG TAB PO SCH (13:55)
--- NOTE | 2016-12-26 15:26 | PRG ---
DATE OF SERVICE: 12/26/2016 Ms. Cabral is doing well today. She is undergoing dialysis. Patient is status post amputation of l eft great toe and metatarsal. The wound today was reviewed and it is granulating and looks good. Sh jordan still has erythema in the plantar arch. She will need continued intravenous vancomycin. Cultures, MRSA and Streptococcus, both sensitive. We would recommend intravenous antibiotic administration fo r 2 weeks outpatient during dialysis. The patient should have a postoperative shoe to wear. She loan uld wear this when out of bed. She should keep her heels off the bed to prevent decubiti. This was reinforced to her. I will see over the weekend as needed. Dr. Grigsby is calling, please call if ne yessica. I will also look at her wound on Thursday. Patient could be discharged any time with the out patient antibiotics arranged by Nephrology to be administered during dialysis.
[2016-12-26] MEDS: Famotidine 20 MG TAB PO SCH (20:50)
[2016-12-27] MEDS: HYDROcodone/Acetaminophen 5/325 mg Tablet PO PRN ×2 (02:42→12:58)
[2016-12-27 05:01] LABS: #Eosinphils 0.5 thou/uL (0.0-0.7); #Lymphocytes 1.5 thou/uL (1.20-3.40); #Monocytes 0.9 thou/uL (0.11-0.59); #Neutrophils 6.2 thou/uL (1.40-6.50); %Basophils 0.2 % (0.0-1.0); %Eosinophils 5.3 % (0.0-10.0); %Monocytes 9.6 % (0.0-10.0); Hematocrit 25.6 % (36.0-47.0); Mean Platelet Volume 7.4 fL (7.4-10.4); Red Blood Cell (RBC) Count 2.68 mill/uL (4.20-5.40); White Blood Cell (WBC) Count 9.1 thou/uL (4.8-10.8)
[2016-12-27 05:07] LABS: Anion Gap 11 mmol/L (10-20); BUN (Urea Nitrogen) 12 mg/dL (7.0-18.7); Calc. Creatinine Clearance 28 mL/min (70-130); Calcium 8.7 mg/dL (7.8-10.44); Carbon Dioxide 28 mmol/L (22-29); Chloride 98 mmol/L (98-107); Estimated GFR-MDRD 16
[2016-12-27] MEDS: Cefepime 1 GM, Admixture Fee 1 EACH in Sterile Water 10 ML SLOW IVP SCH (05:26)
[2016-12-27] MEDS: Ondansetron ODT 4 MG TAB PO PRN ×2 (05:52→14:48)
[2016-12-27] MEDS ORDERED: Sodium Chloride 0.9% 10 ML ONE (07:37)
[2016-12-27] MEDS: Polyethylene Glycol 3350 17 GM Packet PO SCH (08:18)
[2016-12-27] MEDS: Sevelamer Carbonate 800 MG TAB PO SCH ×2 (08:19→08:20)
[2016-12-27] MEDS: Amlodipine 5 MG TAB PO SCH (08:19)
[2016-12-27] MEDS: Carvedilol 3.125 MG TAB PO SCH (08:20)
[2016-12-27] MEDS ORDERED: Vancomycin HCl 1 GM in Premix Bag 1 BAG IVPB SCH (12:00)
[2016-12-27 12:48] LABS: Vancomycin, Random 16.8 ug/mL (See Comment)
[2016-12-27 12:59] VITALS: TEMP 98.7
--- NOTE | 2016-12-27 13:18 | PRG ---
DATE OF SERVICE: 12/27/2016 Subjective: Patient was seen and examined at bedside and overnight events noted. Patient denies any shortness of breath or chest pain or palpitation. No history of nausea or vomiting or diarrhea or f ever or chills or cramps. Objective: General: This is a well-built female in no acute distress. Vital Signs: Temperature 97.6, pulse 74, respiratory rate 18, blood pressure 124/67. HEENT: Atraumatic, normocephalic. Oral mucosa is moist. Neck: Supple. Cardiovascular: S1, S2 heard. Rate and rhythm regular. Respiratory: Clear to auscultation. Gastrointestinal: Abdomen is soft. Musculoskeletal: No tenderness, no edema. Dermatologic: No skin rash. Neurologic: Alert and awake and oriented x3. No focal neurologic deficits. Moving all the extremit ies. Psychiatric: Mood and affect normal LABORATORY DATA: Potassium is 3.5, BUN is 12, creatinine is 3.7. ASSESSMENT AND PLAN: 1. End-stage renal disease. Continue on dialysis Thursday, Thursday, and Thursday. 2. Osteomyelitis. Continue vancomycin with dialysis. 3. Hyperkalemia, better. 4. Hypertension, stable. 5. Anemia, hemoglobin is stable. Plan is to continue on dialysis as tolerated.
[2016-12-27] MEDS ORDERED: Vancomycin HCl 750 MG in Sodium Chloride 0.9% 250 ML 250 ML IVPB SCH (13:30)
--- NOTE | 2016-12-27 14:41 | DIS ---
DATE OF ADMISISON: 12/22/2016 DATE OF DISCHARGE: 12/27/2016 DISCHARGE DISPOSITION: Home with home health care through [facility]. FOLLOWUP: 1. Follow up with Dr. Lotus Cee in 1 week. 2. Follow up with Dr. Grigsby in 1-2 weeks. ALLERGIES: No known drug allergies. DISCHARGE MEDICATIONS: Tylenol #3 as needed, amlodipine 10 mg daily, aspirin 81 mg daily, carvedilol 3.125 mg b.i.d., Renvela 2400 mg three times daily, vancomycin with hemodialysis. INPATIENT CONSULTANTS: 1. General surgery, Dr. Grigsby. 2. Nephrology, Dr. Malone. The patient was seen and examined on the day of discharge. Denies any new complaints. Pain controlled. The patient currently has wound VAC. It will be changed to home wound VAC at discharge. PHYSICAL EXAMINAITON: VITAL SIGNS: Showed temperature 97.6, pulse 75, respirations 18, blood pressure 124/67 with O2 saturation 97% on room air. GENERAL: The patient in no apparent distress. LUNGS: Clear to auscultation bilaterally. HEART: S1, S2 present. Regular rate and rhythm. ABDOMEN: Soft, nontender, bowel sounds present. EXTREMITIES: No new swelling or tenderness. Wound dressing was noted. SIGNIFICANT LABORATORY DATA: Creatinine on the day of discharge is 3.76 with sodium of 133. WBC on admission was 18.1, at discharge 9.1. Lactic acid on admission was 1.0. Troponin was 0.301 on admission with normal CK-MB. Repeat troponin was 0.022. CRP was 24. IMAGING: X-ray of the left foot was negative. Lower extremity MRI showed osteomyelitis of the great toe distal phalanx as well as proximal phalanx head and neck with septic arthritis of the interphalangeal joint. There was also extensive surrounding cellulitis of the great toe and within the webbing of the first and the second interphalangeal joint. There was infected tenosynovitis of the flexor hallucis longus tendon extending to the mid foot. INPATIENT PROCEDURES: On 12/24/2016, the patient underwent amputation of the left great toe and metatarsal. The wound was left open to heal by secondary intention. Wound VAC has been arranged for home. BRIEF HOSPITAL COURSE: Patient is a 41-year-old -[place] female with diabetes mellitus type 2, hypertension with end-stage renal disease on hemodialysis who presented to the emergency room with infected diabetic foot ulcer with osteomyelitis. Please refer to the history and physical dated 2016 for further details. The patient was admitted to the hospital with the above diagnosis. She underwent amputation of the left great toe and metatarsal on 12/24/2016. The wound was left open to heal by secondary intention. On the day of discharge, her white blood cells are normal. Her temperature is 98.7. She has been cleared by consultants for discharge. She will receive one dose of vancomycin prior to discharge. Dr. Malone arranged antibiotics with hemodialysis. Please note, the initial temperature in the emergency room was 103.1. FINAL DIAGNOSES: 1. Sepsis with acute organ dysfunction secondary to MRSA osteomyelitis/septic arthritis with cellulitis (diabetic foot infection). 2. End-stage renal disease on hemodialysis. 3. Diabetes mellitus type 2. 4. Coronary artery disease. 5. Hypertension. 6. Obesity with a BMI of 32.2. 7. Chronic anemia secondary to renal insufficiency. 8. Elevated troponin on admission secondary to demand ischemia. An echocardiogram and a stress test as outpatient is recommended once she stabilizes. 9. Elevated inflammatory markers. 10. Plan of care was discussed with the patient. She stated understanding. 11. Echocardiogram was not ordered. YULIANA
[2016-12-27 15:38] VITALS: BP 122/58
[2016-12-28] MEDS ORDERED: Sevelamer Carbonate 800 MG TAB PO SCH (08:00)
== END 2016-12-27 17:55 | disposition home health service (06) | DRG 853 ==
LOC: ERS 15:09 → 2NO 19:42
PROVIDERS: ADMIT Internal Medicine Infectious Disease; ATTEND Internal Medicine Infectious Disease
PROC: 0Y6Q0Z1 Detachment at Left 1st Toe, High, Open Approach (ICD-10-PCS; principal; 2016-12-24)
PROC: 5A1D70Z Performance of Urinary Filtration, Intermittent, Less than 6 Hours Per Day (ICD-10-PCS; 2016-12-24)
DX: A41.02 Sepsis due to Methicillin resistant Staphylococcus aureus (principal); N18.6 End stage renal disease; I12.0 Hypertensive chronic kidney disease with stage 5 chronic kidney disease or end stage renal disease; I24.8 Other forms of acute ischemic heart disease; M86.172 Other acute osteomyelitis, left ankle and foot; L03.116 Cellulitis of left lower limb; E11.21 Type 2 diabetes mellitus with diabetic nephropathy; E11.40 Type 2 diabetes mellitus with diabetic neuropathy, unspecified; R65.20 Severe sepsis without septic shock; E11.22 Type 2 diabetes mellitus with diabetic chronic kidney disease; E11.621 Type 2 diabetes mellitus with foot ulcer; L97.529 Non-pressure chronic ulcer of other part of left foot with unspecified severity; Z99.2 Dependence on renal dialysis; D63.1 Anemia in chronic kidney disease; Z79.82 Long term (current) use of aspirin; Z79.4 Long term (current) use of insulin; E11.69 Type 2 diabetes mellitus with other specified complication; E87.5 Hyperkalemia; I25.10 Atherosclerotic heart disease of native coronary artery without angina pectoris; E66.9 Obesity, unspecified; Z68.32 Body mass index [BMI] 32.0-32.9, adult
CPT/HCPCS: 36415; 36416; 71020; 80048; 80053; 80069; 80202; 82553; 83605; 84100; 84484; 84703; 85007; 85025; 85027; 85652; 86140; 87040; 87070; 87077; 87186; 87205; 87340; 88305; 88311; 90935; 93005; 96361; 96374; 96375; A4216; G0257; J0692; J2001; J2405; J2704; J3010; J3370; J7050; Q0162

== ENCOUNTER 2017-02-15 09:54 | Emergency (ER) | payer MEDICARE, MEDICAID ==
[2017-02-15 11:00] LABS: #Eosinphils 0.3 thou/uL (0.0-0.7); #Lymphocytes 1.8 thou/uL (1.20-3.40); #Monocytes 0.3 thou/uL (0.11-0.59); #Neutrophils 3.5 thou/uL (1.40-6.50); %Basophils 0.8 % (0.0-1.0); %Eosinophils 5.1 % (0.0-10.0); %Monocytes 5.4 % (0.0-10.0); %Neutrophils 58.8 % (42.0-75.0); Hemoglobin 10.1 g/dL (12.0-16.0); Mean Corpuscular HGB CONC 30.8 g/dL (32.0-36.0); Mean Corpuscular Hemoglobin 28.2 pg (27.0-31.0); Mean Corpuscular Volume 91.6 fl (81.0-99.0); Mean Platelet Volume 7.3 fL (7.4-10.4); Platelet Count 270 thou/uL (130-400); RBC Distribution Width 15.8 % (11.5-14.5); Red Blood Cell (RBC) Count 3.58 mill/uL (4.20-5.40)
[2017-02-15 11:22] LABS: Anion Gap 13 mmol/L (10-20); BUN (Urea Nitrogen) 43 mg/dL (7.0-18.7); Calc. Creatinine Clearance 0 mL/min (70-130); Calcium 9.6 mg/dL (7.8-10.44); Carbon Dioxide 26 mmol/L (22-29); Chloride 103 mmol/L (98-107); Estimated GFR-MDRD 7; Potassium 4.8 mmol/L (3.5-5.1); Sodium 137 mmol/L (136-145)
[2017-02-15 11:27] LABS: Glucose 49 mg/dL (70-105)
--- NOTE | 2017-02-15 13:32 | RAD ---
PORTABLE CHEST: HISTORY: Dialysis patient. Thrombosed fistula. COMPARISON: Chest exam of 12/22/2016. FINDINGS: The lungs are clear. The heart is mildly enlarged with postop sternotomy change. Stent material ove rlies the left axillary and subclavian veins. This was noted on the prior study. There is a calcifi ed nodule in the right peripheral lung, which is stable. IMPRESSION: No acute chest finding or interval change noted. POS: SVITLANA
--- NOTE | 2017-03-21 17:33 | EKG ---
Test Reason : Blood Pressure : / mmHG Vent. Rate : 087 BPM Atrial Rate : 087 BPM P-R Int : 160 ms QRS Dur : 082 ms QT Int : 392 ms P-R-T Axes : 049 029 073 degrees QTc Int : 471 ms Normal sinus rhythm Possible Left atrial enlargement Borderline ECG Confirmed by JIN CHOW ([id number]), brands editor GUILHERME MCFADDEN ([id number]) on 03/21/2017 5:33:08 PM Referred By: Confirmed By:JIN CHOW
== END 2017-02-15 12:57 | disposition home or self-care (01) ==
LOC: ERS 09:54
DX: T82.898A Other specified complication of vascular prosthetic devices, implants and grafts, initial encounter (principal); I25.10 Atherosclerotic heart disease of native coronary artery without angina pectoris; E11.9 Type 2 diabetes mellitus without complications; I10 Essential (primary) hypertension; Z79.899 Other long term (current) drug therapy; Z79.82 Long term (current) use of aspirin; Z79.4 Long term (current) use of insulin
CPT/HCPCS: 36415; 36416; 71045; 80048; 85025; 93005

== ENCOUNTER 2017-02-16 08:28 | Day surgery (SDC) | payer MEDICARE, MEDICAID ==
--- NOTE | 2017-02-16 08:47 | HP ---
HISTORY OF PRESENT ILLNESS: Emelina Cabral is a 41-year-old insulin-dependent diabetic femal e with hypertension, end-stage renal disease, dialyzing Thursday, Thursday, and Thursday at [facility] in [place]. She is followed by Dr. Giordano. The patient has a left upper arm dialysis fistula that I placed 03/2014. She has inflow to the proximal radial artery, outflow cephalic vein, basilic vein , dialyzing her through the cephalic vein outflow upper arm. Apparently they have been having proble ms with access recently, she last dialyzed Thursday, 5 days ago. She was to report to the hospital, Thursday, but never reported. She reported to the emergency room Thursday, yesterday, had laboratories obtained which did not look bad and was sent home. She was expected to show up in Interventional Rad iology today with orders, but instead presented to the outpatient surgery waiting room. I was called to evaluate her. She has a left upper arm cephalic vein fistula that they have been utilizing, she has prominent pulsations between the antecubital fossa and the deltoid area with apparent clinical oc clusion of the cephalic vein upper arm. She has noted at the time of formation to have basilic vein outflow tube. Plan at this time is to obtain Interventional Radiology evaluation to try to avoid an operation and if necessary, she may need surgical revision. We will obtain electrolytes. The patien t understands the risks and benefits and consents. Yesterday, her white count was 6, hemoglobin 10. Sodium 137, potassium 4.8, BUN 43. ALLERGIES: None. TOBACCO: None. ALCOHOL: None. MEDICATIONS: Renvela 2400 mg t.i.d., Zofran 4 mg q.6, Coreg 3.25 mg b.i.d., aspirin 81 mg a day, aml odipine 10 mg daily, Tylenol #3 as needed. PAST MEDICAL HISTORY: End-stage renal disease on maintenance dialysis Thursday, Thursday, and Thursday at [facility], hypertension, history of poor compliance, coronary disease, status post bypass gra fting. PAST SURGICAL HISTORY: Left arm primary fistula I placed in 2014, hemodialysis catheter placed and r emoved, coronary bypass grafting x4 vessels in 2006, bilateral tubal ligation, appendectomy, laparosc opic cholecystectomy 2017, amputation of her left great toe 12/2016, toe and metatarsal healing by se condary intention. Home health is doing the wound care in [place]. PHYSICAL EXAMINATION: GENERAL: Patient is in no acute distress. HEENT: Unremarkable. LUNGS: Clear to auscultation. CARDIAC: Regular rate and rhythm without murmur or gallop. ABDOMEN: Soft, nontender. Sternotomy scar per bypass grafting. EXTREMITIES: Left upper arm fistula proximal prominent pulsations in the distal two-thirds upper arm with apparent clinical occlusion cephalic vein deltoid area. No arm edema. The left foot wound yara ost completely healed, some granulation tissue at the amputation site, but overall is doing well. Hawa ortega has w wound over the dorsum of foot that is granulating and small and healthy without infection. ASSESSMENT AND PLAN: 1. End-stage renal disease with malfunction of her dialysis facial. I have talked to Interventional Radiology who will evaluate this today. She has surgical options for revision, but we will see if I nterventional Radiology can resolve the outflow obstruction 2. Diabetes mellitus, insulin-dependent. 3. Hypertension. 4. Status post amputation of left great toe. 5. Coronary artery disease.
[2017-02-16] MEDS ORDERED: diphenhydrAMINE 50 MG/ML VIAL ONE (08:53)
[2017-02-16] MEDS ORDERED: methylPREDNISolone Sod Succ/PF 125 MG/2 ML VIAL ONE ×2 (08:55→08:56)
[2017-02-16] MEDS ORDERED: Sodium Chloride 0.9% 30 ML ONE (09:17)
[2017-02-16] MEDS ORDERED: Famotidine/PF 20 mg/2ml Vial SLOW IVP ONE (09:45)
[2017-02-16 10:35] VITALS: BP 165/90; TEMP 98.2; BMI 30.2
[2017-02-16] MEDS ORDERED: FLU VACC QS2017-18 36 mo. & older 0.5 ML SYRINGE IM ONE (11:15)
--- NOTE | 2017-02-16 13:09 | ADD-HP ---
ADDENDUM PATIENT ENCOUNTER The patient is an outpatient today and Interventional Radiology dictated a previous history and physi vivi this morning. Ms. Emelina Cabral underwent interventional radiology today. She has a fi stula in the left upper arm that was placed in 2014. This has served her well, although she was repo rted to an outside interventional center and they placed stents in left subclavian vein, axillary vei n. The patient had some narrowing of her cephalic vein fistula and Interventional Radiology was perf ormed. The patient's fistula seemed to be working better now. Considering her failing fistula in he r left arm and her young age of 41, I have recommended she undergo a right arm primary fistula. If a t the time of that operation, a suitable vein is not found, a prosthetic graft would not be placed, b ut instead this will be deferred for a later time. I have discussed with the patient and her mother who are agreeable. We will plan this later this month on Thursday afternoon or morning, nondialysis _ ____ (01:20). The patient's left arm fistula was placed with poor veins by vein mapping, but finding s at operation was an excellent vein.
--- NOTE | 2017-02-16 13:50 | SPC ---
LEFT UPPER EXTREMITY ARTERIAL VENOUS DIALYSIS FISTULOGRAM AND VENOGRAM TO THE SVC PERCUTANEOUS TRANSLUMINAL ANGIOPLASTY OF THE UPPER EXTREMITY VENOUS OUTFLOW: History: Non-functioning left upper extremity arterial venous dialysis fistula. Fluoroscopy: [place] [address] mGy*cm^2. Total fluoroscopy time is 2.5 minutes. Technique: After informed consent was obtained, the patient was placed on the angiography table in supine positi on. Limited sonographic evaluation of the left upper extremity was performed. The left upper extremit y was meticulously prepped and draped in the usual sterile fashion. Skin and subcutaneous tissues were infiltrated with buffered 1% Lidocaine for local anesthesia at the intended puncture site at the level of the antecubital fossa. The left upper extremity arterial veno us dialysis fistula was then accessed using micropuncture technique and a 4 American introducer sheath was placed. A fistulogram and venogram through the SVC were performed. There is sluggish venous outflow of the fi stula. Attempts at refluxing the arterial venous anastomosis were unsuccessful, probably related to p atient discomfort and brisk inflow. The fistulogram demonstrates focal severe short segment stenosis in the venous outflow at the level o f vascular stents near the axillary subclavian main junction raising the left subclavian vein, and to a lesser extent, the left axillary vein. Introducer sheath was exchanged over a .035 inch Thompson guidewire for a 6 mm x 4 cm angioplasty ballo on. Angioplasty was performed of the focal areas of short segment stenosis. Angioplasty balloon was r emoved. A fistulogram and venogram of the SVC were again performed demonstrating improvement in lumin al diameter and there is now brisk flow seen throughout the fistula which is improved from prior to a ngioplasty. There is persistent narrowing, but given interval improvement as well as brisk flow and w ashout, no additional angioplasty was performed. The sheath was removed and hemostatis was achieved w ith direct pressure. The patient tolerated the procedure well and without immediate complication. FINDINGS: Left upper extremity arterial venous dialysis fistula with stents in the venous outflow at the level of the axillary and subclavian veins. There are multiple embolization coils seen within the region of the left arm as well as near the level of the antecubital fossa, likely related to embolization of c ollateral vessels. A focal short segment severe stenosis is seen in the venous outflow with severe inter stent stenosis at the level of the left subclavian vein. A lesser degree of narrowing is seen within the stents in t he region of the left axillary vein. SECURITY OPERATIONS CENTER OPERATOR up to 6 mm diameter was performed with improvement in luminal diameter as well as improvement in flow. Brisk flow was seen throughout the fistula post angioplasty. Given improvement in flow as well as improvement in luminal diameter, additional angioplasty with a large sized balloon was not perform ed. IMPRESSION: 1. Severe inter stent stenosis involving one of the vascular stents within the left subclavian vein. SECURITY OPERATIONS CENTER OPERATOR of 6 mm in diameter was performed. This resulted in improved luminal diameter as well as improved flow and washout through the arterial venous dialysis fistula. 2. Central veins are patent. 3. The arterial venous anastomosis was unable to be refluxed due to brisk flow within the fistula. Pa ricnt also had extreme discomfort on manual compression and as a result repeat imaging was not perfor med to obtain visualization of the arterial venous anastomosis. There is brisk inflow and washout of the fistula post procedure. POS: LIBBY
--- NOTE | 2017-02-17 15:40 | SPC ---
LEFT UPPER EXTREMITY ARTERIAL VENOUS DIALYSIS FISTULOGRAM AND VENOGRAM TO THE SVC PERCUTANEOUS TRANSLUMINAL ANGIOPLASTY OF THE UPPER EXTREMITY VENOUS OUTFLOW: History: Non-functioning left upper extremity arterial venous dialysis fistula. Fluoroscopy: [place] [address] mGy*cm^2. Total fluoroscopy time is 2.5 minutes. Technique: After informed consent was obtained, the patient was placed on the angiography table in supine positi on. Limited sonographic evaluation of the left upper extremity was performed. The left upper extremit y was meticulously prepped and draped in the usual sterile fashion. Skin and subcutaneous tissues were infiltrated with buffered 1% Lidocaine for local anesthesia at the intended puncture site at the level of the antecubital fossa. The left upper extremity arterial veno us dialysis fistula was then accessed using micropuncture technique and a 4 [place] introducer sheath was placed. A fistulogram and venogram through the SVC were performed. There is sluggish venous outflow of the fi stula. Attempts at refluxing the arterial venous anastomosis were unsuccessful, probably related to p atient discomfort and brisk inflow. The fistulogram demonstrates focal severe short segment stenosis in the venous outflow at the level o f vascular stents near the axillary subclavian main junction raising the left subclavian vein, and to a lesser extent, the left axillary vein. Introducer sheath was exchanged over a .035 inch Thompson guidewire for a 6 mm x 4 cm angioplasty ballo on. Angioplasty was performed of the focal areas of short segment stenosis. Angioplasty balloon was r emoved. A fistulogram and venogram of the SVC were again performed demonstrating improvement in lumin al diameter and there is now brisk flow seen throughout the fistula which is improved from prior to a ngioplasty. There is persistent narrowing, but given interval improvement as well as brisk flow and w ashout, no additional angioplasty was performed. The sheath was removed and hemostatis was achieved w ith direct pressure. The patient tolerated the procedure well and without immediate complication. FINDINGS: Left upper extremity arterial venous dialysis fistula with stents in the venous outflow at the level of the axillary and subclavian veins. There are multiple embolization coils seen within the region of the left arm as well as near the level of the antecubital fossa, likely related to embolization of c ollateral vessels. A focal short segment severe stenosis is seen in the venous outflow with severe inter stent stenosis at the level of the left subclavian vein. A lesser degree of narrowing is seen within the stents in t he region of the left axillary vein. SCANNER OPERATOR up to 6 mm diameter was performed with improvement in luminal diameter as well as improvement in flow. Brisk flow was seen throughout the fistula post angioplasty. Given improvement in flow as well as improvement in luminal diameter, additional angioplasty with a large sized balloon was not perform ed. IMPRESSION: 1. Severe intrastent stenosis involving the left subclavian vein. SCANNER OPERATOR of 6 mm in diameter was perform ed. This resulted in improved luminal diameter as well as improved flow and washout. 2. Central veins are patent. 3. The arterial venous anastomosis was unable to be refluxed due to brisk flow within the fistula and discomfort on manual compression and as a result repeat imaging was not performed to obtain visualiz ation of the arterial venous anastomosis.
== END 2017-02-16 12:30 | disposition home or self-care (01) ==
LOC: SDC 08:28 → RAD 12:30
PROVIDERS: ATTEND Specialist
DX: T82.590A Other mechanical complication of surgically created arteriovenous fistula, initial encounter (principal); I12.0 Hypertensive chronic kidney disease with stage 5 chronic kidney disease or end stage renal disease; E10.22 Type 1 diabetes mellitus with diabetic chronic kidney disease; N18.6 End stage renal disease; I25.10 Atherosclerotic heart disease of native coronary artery without angina pectoris; Z99.2 Dependence on renal dialysis; Z79.899 Other long term (current) drug therapy; Z91.041 Radiographic dye allergy status; Z95.5 Presence of coronary angioplasty implant and graft; Z90.49 Acquired absence of other specified parts of digestive tract; Z89.412 Acquired absence of left great toe; Z98.890 Other specified postprocedural states
CPT/HCPCS: 36901; 36902; C1725; A4216; J1200; J2930; S0028

== ENCOUNTER 2017-08-11 06:17 | Day surgery (SDC) | payer MEDICARE, MEDICAID ==
[2017-08-10 11:56] VITALS: BMI 31.3
[2017-08-11] MEDS ORDERED: Midazolam HCl 2 mg/2 ml Vial ONE (07:52)
--- NOTE | 2017-08-11 09:38 | OP ---
DATE OF PROCEDURE: 08/11/2017 SURGEON: Dr. Patricio Kapoor PROCEDURE: Esophagogastroduodenoscopy with biopsy. PREOPERATIVE DIAGNOSES: Hematemesis and chronic nausea. OPERATIVE NOTE: Informed consent was obtained from the patient. She was sedated with total intraven ous anesthesia. The bite block was placed and the endoscope was advanced easily to the second portio n of the duodenum and retroflexion was performed in the stomach. The esophagus was normal. The GE j unction was normal. There was a 7 mm polyp in the cardia of the stomach, which was biopsied. There was mild erosive gastritis and severe erosive duodenitis in the first portion of the duodenum. Biops ies were taken from the antrum and body to rule out H. pylori. Retroflexed views in the stomach were otherwise normal. Second portion of the duodenum was normal. IMPRESSION: 1. Erosive gastritis and erosive duodenitis. Gastric biopsies were taken to rule out Helicobacter p ylori. 2. A 7 mm polyp in the cardia of the stomach. This is likely a hyperplastic or fundic gland polyp. If so, then this requires no further intervention. If this is an adenoma, then followup endoscopy w ith removal will be necessary. 3. The hematemesis that she had previously was likely a Denise-Lucio tear related to persistent ret brittney prior to the hematemesis episode. 4. Chronic nausea occurred primarily with dialysis. She states that over the last 3 sessions she oliveros d an adjustment to her dry weight and now she has had no nausea with the last 3 sessions. RECOMMENDATIONS: 1. Await histopathology. 2. Proton pump inhibitor daily. 3. Follow up in GI Clinic. 4. We will hold off CT scan for now since her symptoms have resolved with adjustment in her dialysis regimen. Of note, if ultimately she does end up requiring CT then she has a contrast allergy and wi ll need to be premedicated for that. 5. She was also noted previously to have elevated alkaline phosphatase chronically. Additional lab work was drawn for that this morning.
[2017-08-11] MEDS ORDERED: PROPOFOL 200 MG/20 ML VIAL ONE (11:20)
[2017-08-11] MEDS ORDERED: Lidocaine 1% PF 5 ML VIAL ONE (11:20)
== END 2017-08-11 10:00 | disposition home or self-care (01) ==
LOC: SDC 06:17
PROVIDERS: ATTEND Internal Medicine Gastroenterology
PROC: 0DB98ZX Excision of Duodenum, Via Natural or Artificial Opening Endoscopic, Diagnostic (ICD-10-PCS; principal; 2017-08-11)
PROC: 0DB68ZX Excision of Stomach, Via Natural or Artificial Opening Endoscopic, Diagnostic (ICD-10-PCS; 2017-08-11)
DX: K31.7 Polyp of stomach and duodenum (principal); K29.50 Unspecified chronic gastritis without bleeding; K25.9 Gastric ulcer, unspecified as acute or chronic, without hemorrhage or perforation; I13.2 Hypertensive heart and chronic kidney disease with heart failure and with stage 5 chronic kidney disease, or end stage renal disease; E11.22 Type 2 diabetes mellitus with diabetic chronic kidney disease; N18.6 End stage renal disease; I50.9 Heart failure, unspecified; I25.10 Atherosclerotic heart disease of native coronary artery without angina pectoris; D64.9 Anemia, unspecified; Z91.041 Radiographic dye allergy status; Z79.4 Long term (current) use of insulin; Z79.82 Long term (current) use of aspirin; Z79.899 Other long term (current) drug therapy
CPT/HCPCS: 36416; 88305; 88312; J2001; J2250; J2704

== ENCOUNTER 2017-08-20 12:29 | Outpatient (CLI) | payer MEDICARE, MEDICAID ==
[2017-08-20 14:04] LABS: #Eosinphils 0.5 thou/uL (0.0-0.7); #Lymphocytes 1.5 thou/uL (1.20-3.40); #Monocytes 0.5 thou/uL (0.11-0.59); %Basophils 0.8 % (0.0-1.0); %Eosinophils 8.1 % (0.0-10.0); %Lymphocytes 22.2 % (21.0-51.0); %Monocytes 7.8 % (0.0-10.0); %Neutrophils 61.2 % (42.0-75.0); Mean Corpuscular HGB CONC 31.5 g/dL (32.0-36.0); Mean Corpuscular Hemoglobin 30.7 pg (27.0-31.0); Mean Corpuscular Volume 97.3 fL (78.0-98.0); Mean Platelet Volume 7.6 fL (7.4-10.4); Platelet Count 247 thou/uL (130-400); RBC Distribution Width 14.5 % (11.5-14.5); White Blood Cell (WBC) Count 6.6 thou/uL (4.8-10.8)
[2017-08-20 14:22] LABS: Anion Gap 14 mmol/L (10-20); BUN (Urea Nitrogen) 40 mg/dL (7.0-18.7); Calc. Creatinine Clearance 0 mL/min (70-130); Calcium 7.6 mg/dL (7.8-10.44); Carbon Dioxide 29 mmol/L (22-29); Chloride 103 mmol/L (98-107); Estimated GFR-MDRD 8; Glucose 106 mg/dL (70-105); Potassium 5.2 mmol/L (3.5-5.1); Sodium 141 mmol/L (136-145)
[2017-08-20 14:46] LABS: BHCG - Serum Negative (NEGATIVE); Pregs Control Background? CLEAR/WHITE (CLR/WHITE); Pregs Control Bar Appear? YES (CONTROL BAR)
--- NOTE | 2017-08-20 16:35 | EKG ---
Test Reason : Blood Pressure : / mmHG Vent. Rate : 079 BPM Atrial Rate : 079 BPM P-R Int : 152 ms QRS Dur : 082 ms QT Int : 436 ms P-R-T Axes : 060 117 023 degrees QTc Int : 499 ms Normal sinus rhythm Possible Left atrial enlargement Left posterior fascicular block Prolonged QT Abnormal ECG Confirmed by SHANNON AKHTAR ([id number]) on 08/20/2017 4:34:44 PM Referred By: LORIE Confirmed By:SHANNON AKHTAR
== END 2017-08-20 12:30 | disposition home or self-care (01) ==
LOC: LABBT 12:29
PROVIDERS: ATTEND Specialist
DX: Z01.818 Encounter for other preprocedural examination (principal); M86.9 Osteomyelitis, unspecified
CPT/HCPCS: 80048; 84703; 85025; 93005; 93010

== ENCOUNTER 2017-08-24 06:37 | Day surgery (SDC) | payer MEDICARE, MEDICAID ==
--- NOTE | 2017-08-20 12:30 | HP ---
DATE OF : 1975 HISTORY OF PRESENT ILLNESS: Emelina Cabral is a 41-year-old black female with end-stage renal dise ase, diabetic hypertensive, who presents with a left second toe edema, osteomyelitis clinically and u lcer over the dorsum of the distal toe. Has plantar deviation. She has had prior amputation of left great toe and metatarsal healing by secondary intention. There is no cellulitis of the second toe. The plan is to amputate left second toe to the proximal phalanx with primary closure. We will plan to give her vancomycin, gentamicin intravenously the morning of surgery. She will follow up with me in a week and a half. PAST MEDICAL HISTORY: Diabetes mellitus, hypertension, end-stage renal disease, dialyzes at [facility] Thursday, Thursday, and Thursday at 0500. PAST SURGICAL HISTORY: Appendectomy, tubal ligation, left upper arm fistula 03/31/2014. HD catheter placement, amputation of left great toe and metatarsal healed secondarily. ALLERGIES: None. TOBACCO: None. ALCOHOL: None. MEDICATIONS: Insulin 70/30 twice a day, aspirin 81 mg a day. She can continue taking this around e time of surgery, carvedilol 6.25 mg twice a day, amlodipine daily, glipizide once a day. REVIEW OF SYSTEMS: Ten point noncontributory. FAMILY HISTORY: Noncontributory. PHYSICAL EXAMINATION: VITAL SIGNS: Weight 207 pounds, 67 inches, 144/78, 83, 98 degrees. HEENT: Unremarkable. LUNGS: Clear to auscultation. CARDIAC: Regular rate and rhythm without murmur or gallop. ABDOMEN: Obese, soft, nontender. EXTREMITIES: Palpable pedal pulses. Chronic venous stasis changes. Previous amputation of left gre at toe and metatarsal healed secondarily. Left second toe plantar deviation and edema dorsal open wo und excoriation. ASSESSMENT AND PLAN: Clinical osteomyelitis, left second toe with marked edema, open wound over the joint space and plantar deviation. Other toes remain normal on the left foot. Would recommend amput ation, left second toe through the proximal appendix primary closure. We will give her vancomycin, g entamicin preoperatively. This will be an outpatient. We will schedule this on Thursday and she will reschedule her dialysis time.
[2017-08-20 12:47] VITALS: BMI 32.4
[2017-08-24] MEDS ORDERED: Vancomycin HCl 1 GM in Premix Bag 1 BAG IVPB SCH (07:00)
[2017-08-24] MEDS ORDERED: Gentamicin Sulfate 80 MG in Premix Bag 1 BAG IVPB SCH (07:00)
[2017-08-24] MEDS ORDERED: Propofol 500 MG/50 ML VIAL ONE (08:45)
[2017-08-24] MEDS ORDERED: Fentanyl 100 MCG/2 ML VIAL ONE ×6 (08:45→18:56)
[2017-08-24 10:20] LABS: Anion Gap 18 mmol/L (10-20); BUN (Urea Nitrogen) 67 mg/dL (7.0-18.7); Calc. Creatinine Clearance 11 mL/min (70-130); Calcium 7.3 mg/dL (7.8-10.44); Carbon Dioxide 21 mmol/L (22-29); Chloride 105 mmol/L (98-107); Estimated GFR-MDRD 5; Glucose 89 mg/dL (70-105); Sodium 137 mmol/L (136-145)
[2017-08-24 10:27] LABS: Potassium 6.6 mmol/L (3.5-5.1)
--- NOTE | 2017-08-24 11:35 | CON ---
DATE OF CONSULTATION: 08/24/2017 NEPHROLOGY CONSULTATION REASON FOR CONSULTATION: Hyperkalemia. HISTORY OF PRESENT ILLNESS: This is a very pleasant 42-year-old female who presented to the hospital for an amputation. The patient was noted to have potassium of 6.6, I was consulted. The patient denies any nausea, vomiting or chest pain. The patient denies any excessive potassium intake. PAST MEDICAL HISTORY: Significant for hypertension, diabetes mellitus, anemia, history of tubal ligation, AV fistula, tunneled dialysis catheter. ALLERGIES: Reviewed. HOME MEDICATIONS: Reviewed. FAMILY HISTORY: Negative for ESRD. REVIEW OF SYSTEMS: Fifteen-point review of systems was performed and negative except for positives noted above. GENERAL: Weakness- HEAD: Headache- NECK: No swelling or lumps. NOSE: No epistaxis or discharge. EYES: No diplopia or pain. RESPIRATORY: Dyspnea- CARDIOVASCULAR: Chest pain- GASTROINTESTINAL: Nausea- /SLAGGER: Hematuria- MUSCULOSKELETAL: No joint pain. NEUROPSYCHIATRIC SYSTEMS: No suicidal ideation. No ideation. SKIN: Denies any rash or ulcer. CONSTITUTIONAL: No fever or chills. PHYSICAL EXAMINATION: GENERAL: Patient is awake, alert. VITAL SIGNS: Afebrile, pulse 70, breathing at 16, blood pressure 144/78. GENERAL APPEARANCE AND MENTAL STATUS: Fair. HEAD/NECK: Normocephalic. Atraumatic. EYES: EOMI. No deformity. EARS: Clear. No ulcers. NOSE: Intact. No lesions. MOUTH: Clear. No discharge. THROAT: Clear. No exudate. LUNGS: Clear. No crackles. CARDIAC: S1, S2. No rub. ABDOMEN: Benign. BS+. GENITALIA/RECTUM: Evangelista absent. BACK/EXTREMITIES: Edema 0+ Ulcer- NEUROLOGICAL: Alert and motor intact. SKIN: Rash- Bruise- LYMPHATICS: Edema- Ulcer- LABORATORY: Show potassium 6.6. ASSESSMENT AND PLAN: 1. Stage 6 chronic kidney disease, continue hemodialysis. 2. Hyperkalemia, plan dialysis. 3. Anemia, stable. 4. Medication based on glomerular filtration rate are appropriate. MTDD
[2017-08-24] MEDS ORDERED: PROPOFOL 200 MG/20 ML VIAL ONE (13:42)
[2017-08-24 13:48] LABS: HBSAg Index 0.13 S/CO (0-0.99); Hep B Surf Ag Non-Reactive S/CO (NonReactive)
[2017-08-24] MEDS ORDERED: Midazolam HCl 2 mg/2 ml Vial ONE (17:32)
[2017-08-24] MEDS ORDERED: Bupivacaine HCl 0.5%/Epinephrine 1:200,000/PF 30 ml Vial ONE (17:53)
[2017-08-24] MEDS ORDERED: Bacitracin Zinc Ointment 30 gm TUBE ONE (18:09)
[2017-08-24] MEDS ORDERED: Ondansetron HCl/PF 4 MG/2 ML Vial ONE (19:38)
--- NOTE | 2017-08-25 00:56 | OP ---
DATE OF OPERATION: 08/24/2017 PREOPERATIVE DIAGNOSES: Diabetic infection, left second toe, status post amputation of left great to e and metatarsal healing by secondary intention. PROCEDURE: Amputation of left second toe through the proximal phalanx with primary closure. SURGEON: Niles Grigsby M.D. ANESTHESIA: TIVA. No good bleeding noted. Primary closure performed. PROCEDURE IN DETAIL: The patient was taken to the operating room reporting for surgery this morning, she was found to have hyperkalemia require dialysis and returned this evening, to amputate the left second toe. She was given options to go home and come back another day, but she chose to stay. Ampu tation through the left second toe of the proximal phalanx undertaken incision carried down thr ough the skin and subcutaneous tissue. The bone resecting it with a bone cutter and prior resected p roximally with rongeurs, debriding connective tissue sharply, good bleeding and hemostasis obtained w ith the cautery. Wound irrigated. Subcutaneous tissues approximated with 4-0 Monocryl, skin with 4- 0 Prolene. Sterile dressing applied. Patient tolerated the procedure well.
== END 2017-08-24 20:49 | disposition home or self-care (01) ==
LOC: SDC 06:37
PROVIDERS: ATTEND Specialist
PROC: 0Y6S0Z0 Detachment at Left 2nd Toe, Complete, Open Approach (ICD-10-PCS; principal; 2017-08-24)
DX: E11.52 Type 2 diabetes mellitus with diabetic peripheral angiopathy with gangrene (principal); E11.22 Type 2 diabetes mellitus with diabetic chronic kidney disease; I12.0 Hypertensive chronic kidney disease with stage 5 chronic kidney disease or end stage renal disease; N18.6 End stage renal disease; D64.9 Anemia, unspecified; E87.5 Hyperkalemia; Z79.82 Long term (current) use of aspirin; Z79.899 Other long term (current) drug therapy; Z91.041 Radiographic dye allergy status
CPT/HCPCS: 36416; 87340; 88305; 88311; 90935; 96374; 96375; 96376; G0257; J0670; J1580; J2250; J2405; J2704; J3010; J3370